=== PATIENT | male | born 1975 | race Caucasian/White ===

== ENCOUNTER → 2022-06-10 | Outpatient (CLI) | payer OTHER ==
[~2022-06-10] MED LIST: CATAPRES 0.1MG0.1 MG PO; CLONAZEPAM1 MG PO; GABAPENTIN600 MG PO; HYDROCODON-ACE1 EAC6 PO; LAMOTRIGINE ER200 MG PO; LAXATIVE5 M1 PO; MELATONIN5 M2 PO; MINIPRESS2 MG PO; MINIPRESS5 MG PO; NORCO 10-325 T1 EACH PO; RELAFEN 750 MG750 MG PO; TOPIRAMATE100 MG PO; TRAMADOL HCL50 MG PO; VENLAFAXINE HC150 MG PO; ZANAFLEX4 M1 PO; ZESTRIL5 MG PO
[2022-06-10 09:18] LABS: HEMOGLOBIN 12.7 gm/dl (14.0-17.5); RED BLOOD COUNT 3.6 M/UL (4.20-5.50); WHITE BLOOD COUNT 7.3 K/UL (4.5-11.0)
== END ==
LOC: OPSV2 08:00
PROVIDERS: Orthopaedic Surgery
DX: Z01.812 Encounter for preprocedural laboratory examination (principal)
CPT/HCPCS: 80048; 85027

== ENCOUNTER → 2022-06-11 | Day surgery (SDC) | payer OTHER | END | disposition home or self-care (01) | LOC: OR 05:08 | DX: T84.84XA Pain due to internal orthopedic prosthetic devices, implants and grafts, initial encounter (principal); G89.18 Other acute postprocedural pain; I10 Essential (primary) hypertension; Z79.899 Other long term (current) drug therapy; Z88.6 Allergy status to analgesic agent | CPT/HCPCS: 73000; 76000; J0690; J1100; J1170; J2001; J2250; J2370; J2405; J2704; J2795; J3010 ==